=== PATIENT | female | born 1990 | race Caucasian/White ===

== ENCOUNTER 2017-04-04 14:26 | Emergency (ER) | payer BC ==
[~2017-04-04] VITALS: Ht 147.3 cm; Wt 50.8 kg
[2017-04-04 14:38] VITALS: BP_SYST 123
[2017-04-04] MEDS ORDERED: KETOROLAC TROMETHAMINE 60 MG/2 ML VIAL IM ONE (15:00)
[2017-04-04] MEDS ORDERED: PROCHLORPERAZINE EDISYLATE 10 MG/2 ML VIAL IM ONE (15:00)
[2017-04-04] MEDS ORDERED: fentaNYL CITRATE/PF 100 MCG/2 ML AMP IM ONE (15:45)
[2017-04-04] MEDS ORDERED: ONDANSETRON 4 MG ODT TAB PO ONE (16:15)
[2017-04-04 17:33] VITALS: BP_SYST 124
== END 2017-04-04 17:33 | disposition home or self-care (01) ==
LOC: SED 14:26
DX: G43.909 Migraine, unspecified, not intractable, without status migrainosus (principal); J45.909 Unspecified asthma, uncomplicated; Z88.4 Allergy status to anesthetic agent; Z88.2 Allergy status to sulfonamides
CPT/HCPCS: 96372; 99284; J0780; J1885; J3010; Q0162